=== PATIENT | male | born 1970 | race Caucasian/White ===

== ENCOUNTER 2017-02-07 16:33 | Emergency (ER) | payer OTHER ==
[2017-02-07] MEDS ORDERED: LIDOCAINE 2% 10 ML MDV ONE (16:56)
[2017-02-07] MEDS ORDERED: TETANUS/DIPHTHERIA/PERTUSSIS 0.5 ML SYRINGE IM ONE (16:57)
[2017-02-07] MEDS ORDERED: AMOX/CLAV 875 MG/125 MG TABLET PO STA (16:59)
[2017-02-07] MEDS ORDERED: AMOX/CLAV 875 MG/125 MG TABLET PO ONE (17:04)
[2017-02-07] MEDS ORDERED: BACITRACIN OINT TOP ONE (17:33)
== END 2017-02-07 17:56 | disposition home or self-care (01) ==
DX: S51.852A Open bite of left forearm, initial encounter (principal); W54.0XXA Bitten by dog, initial encounter; Y93.02 Activity, running; Y92.007 Garden or yard of unspecified non-institutional (private) residence as the place of occurrence of the external cause; F17.200 Nicotine dependence, unspecified, uncomplicated; Z23 Encounter for immunization
CPT/HCPCS: 12002; 90471; 90715; 99283; A9270